=== PATIENT | female | born 1950 | race Two or more races ===

== ENCOUNTER 2017-04-22 18:03 | Inpatient (IN) | payer SELFPAY ==
[~2017-04-22] VITALS: Ht 170.2 cm; Wt 83.6 kg
--- NOTE | ~2017-04-22 | OR ---
PATIENT'S NAME: MAC [facility] AGE: 66 Y [address] ROOM: [place] [address] LOCATION: GPCU ADMIT DATE: 04/22/2017 OR/Procedure Report DISCHARGE DATE: FAMILY PHYSICIAN: PHYSICIAN, NO ATTENDING PHYSICIAN: JANA SHERWOOD SURGEON: Lindsey Ruff MD LUGGAGE ATTENDANT: DATE OF PROCEDURE: 04/22/2017 PREOPERATIVE DIAGNOSES: 1. Left distal ureter stone. 2. Pyelonephritis. POSTOPERATIVE DIAGNOSES: 1. Left distal ureter stone. 2. Pyelonephritis. PROCEDURE PERFORMED: Cystoscopy with left stent placement. ANESTHESIA: MAC. COMPLICATIONS: None. INDICATION FOR PROCEDURE: The patient is a 66-year-old female with a 6-mm left distal ureter stone with infection. DETAILS OF PROCEDURE: After informed consent was obtained, the patient was taken to the operating room. A MAC anesthetic was applied and she was placed in dorsal lithotomy position. The groin area was prepped and draped in a normal sterile fashion. Cystoscope was introduced into the urethra and bladder without difficulty. A guidewire was passed up into the renal pelvis. Next, a 6-St Lucian multi-length ureteral stent was passed over the guidewire up into the renal pelvis. Radiograph imaging showed good position of the stent. The patient did drain a large amount of purulent matter from the ureter after stent placement. This was sent to micro for culturing. Following this, the bladder was emptied and the procedure terminated. The patient tolerated the procedure well and was transferred to the recovery room in good condition. LINDSEY RUFF MD COOPER/modl PATIENT'S NAME: MAC [facility] AGE: 66 Y [address] ROOM: [place] [address] LOCATION: GPCU ADMIT DATE: 04/22/2017 OR/Procedure Report DISCHARGE DATE: FAMILY PHYSICIAN: CODY CATHERINE ATTENDING PHYSICIAN: JANA SHERWOOD /[id number] d: 04/23/174 t: 04/27/17 1022, OPERATIVE SUMMARY
--- NOTE | ~2017-04-22 | HP ---
PATIENT'S NAME: MAC [facility] AGE: 66 Y [address] ROOM: [place] [address] LOCATION: GPCU ADMIT DATE: 04/22/2017 History & Physical DISCHARGE DATE: FAMILY PHYSICIAN: PHYSICIAN, NO ATTENDING PHYSICIAN: JANA SHERWOOD DATE OF SERVICE: CHIEF COMPLAINT: Left flank and left lower quadrant abdominal pain and urinary frequency and urgency. HISTORY OF PRESENT ILLNESS: This is a 66-year-old Bhutanese-speaking female, who says that since early March 2017 the patient has been having some on and off left flank and left lower quadrant abdominal pain associated with urination. However, the symptom got worse, starting yesterday where the pain in the left lower quadrant and left flank was getting worse and worsened also with urination. She feels some chills and shivering 3 days ago, but she did not take any temperature at home. The patient denies any dysuria, but she does have urinary frequency and urgency. Because of all these problems, the patient came here for evaluation. The patient also complains that for the last 5 years she has been having this on and off, clear fluid leaking out from her anus. Sometimes, the clear fluid would come out from her urethra and anus at the same time when she urinates. The patient would like to know what is going on with her because she has to wear diapers all the time due to this problem. REVIEW OF SYSTEMS: As mentioned in history of present illness. All other systems were reviewed and were negative except those mentioned in the history of present illness. PAST MEDICAL HISTORY: Hypertension, on diet control. ALLERGIES: NONE. HOME MEDICATIONS: Currently has been reconciled. She only takes Tylenol p.r.n. at home. SOCIAL HISTORY: Denies any alcohol, illegal drug, or cigarette use. PATIENT'S NAME: MAC [facility] AGE: 66 Y [address] ROOM: [place] [address] LOCATION: GPCU ADMIT DATE: 04/22/2017 History & Physical DISCHARGE DATE: FAMILY PHYSICIAN: PHYSICIAN, NO ATTENDING PHYSICIAN: JANA SHERWOOD FAMILY HISTORY: Her father from old age from a cause that she could not remember. Mother has diabetes type 2 and asthma and is alive. PAST SURGICAL HISTORY: in the past. PHYSICAL EXAMINATION: VITAL SIGNS: At the time of my dictation, temperature 98, heart rate 90, respirations 16, blood pressure 127/69, and saturation 94% on room air. GENERAL APPEARANCE: Alert and oriented x3, in no acute distress. HEENT: Pupils equally round and reactive to light. Extraocular muscles intact. Nasal turbinates are normal bilaterally. Moist oral mucosa. NECK: No JVD. CARDIOVASCULAR: Regular rate and rhythm. No murmur. No rubs. No gallops. RESPIRATORY: Clear to auscultation. No rales. No rhonchi. No wheezing. No crackles. ABDOMEN: Obese, soft, and nontender at the moment, nondistended, bowel sounds are present. No mass. EXTREMITIES: No edema in the upper or lower extremities. GENITOURINARY: I performed the rectal exam in the presence of her daughter in the room. When I examined the anal area with inspection, I could appreciate a clear water coming out from the anus. SKIN: No ulcer. No rash. No cyanosis. NEUROLOGICAL: Grossly nonfocal. LABORATORY DATA: ABG showed pH of 7.43, pCO2 of 31, pO2 of 48, and bicarbonate 20.6. Lactic acid 2.7 and ammonia 16. Troponin less than 0.04. ProBNP 983. CPK 17. White blood cell 15.5, hemoglobin 10.3, hematocrit 31.6, MCV 90.8, and platelets 249. Glucose 106, BUN 29, creatinine 1.3, sodium 141, potassium 3.9, chloride 111, CO2 of 19, calcium 8.4, total protein 6.7, albumin 2.2, AST 10, ALT 16, alkaline phosphatase 110, total bilirubin 0.6, anion gap 14.9, globulin 4.5, and GFR 41. ESR more than 120. INR 1.2 and PTT 33. Urinalysis showed leukocytes 500, negative nitrite, many bacteria, 20 to 50 white blood cell, and 2 to 5 red blood cells. Amylase 20, lipase 73, CK-MB 0.6, free T4 1.6, TSH 0.98, and procalcitonin 3.84. IMAGING STUDIES: CT of the abdomen and pelvis without contrast on admission showed obstructing 7 mm left ureterovesical junction stone. Bhkndkto-qs-hbnzvq left hydronephrosis. Vbfx-ep-wfsajlug right hydronephrosis without stones or other clear explanation. This may be chronic. Hysterectomy. Chest x-ray on admission, unremarkable. PATIENT'S NAME: ARNOL WATTS [facility] AGE: 66 Y [address] ROOM: [id number] [place], [place] [address] LOCATION: GPCU ADMIT DATE: 04/22/2017 History & Physical DISCHARGE DATE: FAMILY PHYSICIAN: PHYSICIAN, NO ATTENDING PHYSICIAN: JANA SHERWOOD ASSESSMENT/PLAN: 1. Regarding her severe sepsis secondary to complicated urinary tract infection with pyelonephritis: The patient already underwent cystoscopy with left ureteral stent placement by Urology on admission. The patient is postop right now. The plan will continue IV fluids ordered by Urology and also pain control with IV morphine and IV fentanyl p.r.n. and also antibiotic coverage with IV Zosyn. Follow up with blood cultures and urine culture. Further plan will depend on clinical course. 2. Regarding her hypertension diet controlled: Currently under good control. No medication required for now. 3. Regarding her leakage of clear color fluid from rectum: The fluid is clear. It is not stool and the patient states that sometimes this happened simultaneously from her urethra when she urinates where it would also leak from her rectum. This has been going on for the last 5 years on and off. The patient would like to have this investigated during this hospitalization. I will defer to the morning team to decide if GI should be consulted since CT abd/pelv report did not report a possible explanation. Further plan will depend on clinical course. 4. Regarding her deep vein thrombosis prophylaxis: She will be on heparin subcu 3 times a day. 5. Regarding her acute kidney injury: This is secondary to the postobstructive cause from the kidney stone. Continue IV fluid hydration and check renal panel again in the morning. 6. She is a full code. Time spent in care on the day of admission 35 minutes, where 15 minutes was spent on chart review and remainder of the time was spent on interview, physical examination, and also went over the plan of care in detail with the patient and the patient's daughter at the bedside. I also went over the plan of care with the nurse. I answered all the questions and concerns of the patient and the patient's daughter to their satisfaction. Further plan will depend on clinical course. MD RACHEL ASH/min PATIENT'S NAME: ARNOL WATTS [facility] AGE: 66 Y [address] ROOM: [place] [address] LOCATION: [facility] ADMIT DATE: 04/22/2017 History & Physical DISCHARGE DATE: FAMILY PHYSICIAN: CODY CATHERINE ATTENDING PHYSICIAN: JANA SHERWOOD /[id number] D: [id number] T: [id number] HISTORY & PHYSICAL
--- NOTE | ~2017-04-22 | ER ---
PATIENT'S NAME: MAC [facility] AGE: 66 Y [address] ROOM: [id number] [place] [id number] LOCATION: GPCU ADMIT DATE: 04/22/2017 ER/Outpatient Report DISCHARGE DATE: FAMILY PHYSICIAN: PHYSICIAN, NO ATTENDING PHYSICIAN: JANA SHERWOOD Admission date and time are documented in the medical record. I saw the patient at 1820 hours. CHIEF COMPLAINT: Fever, tachycardia, loss of appetite, generalized weakness, chills, headache, nausea, and left-sided abdominal pain. HISTORY OF PRESENT ILLNESS: This patient is a 66-year-old female who has not felt well since March 26 of this year. She was initially seen in [place] and thought to have some type of liver problem and colon problem. She ended up having diarrhea and put on Flagyl on the 05 of April. She is on Flagyl for about 10 days. Over the past 2 days, she has had fever with chills, possible rigors, and nausea without vomiting. Generalized weakness, loss of appetite, poor fluid, and solid intake. Left-sided abdominal pain with no radiation. No chest pain or shortness of breath. Denies any urinary symptomatology. She has a headache generalized. No eyes, ears, nose, throat, neck, or spine pain. No fall or trauma. No lightheadedness, dizziness, syncope, or near syncope. No joint or muscle swelling, redness, or pain. No skin eruptions or rash. No history of neuro changes, psych issues, or endocrine problems. HOME MEDICATIONS: See attached medication list. ALLERGIES: NONE. SOCIAL HISTORY: Nonsmoker, nondrinker. SIGNIFICANT PAST MEDICAL HISTORY: Elevated liver enzymes, colon problems, and arthritis. OPERATIONS: None. REVIEW OF SYSTEMS: All systems reviewed by me are negative with the exception of those discussed in the history of present illness. PATIENT'S NAME: MAC [facility] AGE: 66 Y [address] ROOM: [id number] [place], [place] [address] LOCATION: GPCU ADMIT DATE: 04/22/2017 ER/Outpatient Report DISCHARGE DATE: FAMILY PHYSICIAN: PHYSICIAN, NO ATTENDING PHYSICIAN: JANA SHERWOOD PHYSICAL EXAMINATION: VITAL SIGNS: Temperature 101.4, tympanic, pulse 141, respirations 16, O2 sat on room air was 96%, blood pressure was 122/76. HEAD: Normocephalic. No abrasion, contusion, laceration, or swelling of the scalp or face. EYES: Extraocular muscles are intact. PERRL. Sclerae and conjunctivae clear, nonicteric. EARS: Clear TMs bilaterally. NOSE: Clear. THROAT: Clear. Mucous membranes dry. NECK: No nuchal rigidity. No thyromegaly or cervical adenopathy. No tenderness. SPINE: Negative. No tenderness. No deformity. LUNGS: Clear. Good air flow. No rales, rhonchi, or wheezes. HEART: Regular. Pulses are palpable. ABDOMEN: Soft. No real tenderness to palpation. No distention. No true guarding or rigidity. No rebound tenderness. Active bowel tones. No organomegaly or abnormal mass palpable. No CVA tenderness. EXTREMITIES: No peripheral edema, cyanosis, or deformity. NEUROVASCULAR: Intact. SKIN: Clear. No skin eruptions or rash. IMAGING DATA: Chest x-ray showed no acute infiltrate or changes. We will review x-ray with the radiologist. LABORATORY DATA: White count was elevated at 15,500, 56 segs, 32 bands, 5 lymphs, 6 monos, 1 eo, hemoglobin is 10.3 with hematocrit 31.6, and platelet count is 249,000. Sed rate was elevated at 120, PTT was 33, pro-time is 12.7, INR 1.21. Venous pH was 7.43, lactate was elevated 2.7, procalcitonin was elevated 3.84. CMS was normal except for an elevated chloride of 111, low CO2 content of 19, elevated glucose 106, low calcium of 8.4, elevated BUN of 29, elevated creatinine 1.3, and low GFR of 41. Amylase and lipase were normal. CPK was 17. Lkswv-dx-fzge cardiac enzymes were normal. CRP was elevated at greater than 37.5, free T4 was 1.6, TSH was 0.981, pro-BNP was 983, serum ammonia level was 16. Urinalysis showed 20-50 whites, 2-5 reds, 5-10 epithelial cells, many bacteria, 1+ mucus, few white blood cell clumps, negative nitrates, culture pending. Two blood cultures drawn, results pending. CT scan of the abdomen and pelvis without contrast showed no free air or free fluid. The patient did have bilateral hydronephrosis. Left greater than right. Left was of severe with obstruction caused by a 6-7 mm distal ureteral stone at the UVJ. CT scan was read by Radiology, see dictated transcribed report. PATIENT'S NAME: ARNOL WATTS [facility] AGE: 66 Y [address] ROOM: [place] [address] LOCATION: GPCU ADMIT DATE: 04/22/2017 ER/Outpatient Report DISCHARGE DATE: FAMILY PHYSICIAN: CODY CATHERINE ATTENDING PHYSICIAN: JANA SHERWOOD EMERGENCY DEPARTMENT COURSE: I did start the patient on IV normal saline and fluids. I gave her 3 L then 150 mL an hour. Also, started her on Zosyn 4.5 g IV here in the emergency department. I also gave her oral ibuprofen 800 mg for fever. IMPRESSION: 1. Sepsis, etiology most likely urinary tract. She most likely has pyelonephritis. She does not have a 6-7 mm obstructing left ureteral stone at the ureterovesical junction with ktxcpxtb-ct-yeppdt hydronephrosis on the left collecting system. She also has hydronephrosis on the right collecting system without any evidence of stone obstruction. She does have an elevated BUN of 29, elevated creatinine of 1.3, and low GFR of 41. She had accompanied left-sided abdominal pain. Procalcitonin elevated at 3.84, lactate was elevated 2.7, white count was elevated at 15,500 with bandemia of 32% bands. Urine culture and blood cultures are obtained and results are pending. She is tachycardic, tachypneic, and high temperature of 101.4. She meets all sepsis criteria. 2. Obstructing distal left ureteral stone measuring 6-7 mm at the ureterovesical junction. She has accompanied moderate severe hydronephrosis and collecting system obstruction. The patient is need of cystoscopy and stone extraction. PLAN: Again, the patient was started on IV normal saline, fluids, sepsis x0, it is 2030 hours. Discussed the patient with Dr. Sherwood, hospitalist who will admit the patient to PCU telemetry. I did also speak with Dr. Ruff urologist who is going to take the patient back to operative suite to perform a cystoscopy, stone extraction, and stent placement. Discussion ensued with the patient concerning my findings and recommendations, she understands. Accumulated critical care time was 40 minutes. MD ALEIDA MARVIN/min /[id number] d: 04/23/17 0244 t: 04/23/17 1808, OUTPATIENT REPORT
--- NOTE | ~2017-04-22 | DS ---
PATIENT'S NAME: MAC [facility] AGE: 66 Y [address] ROOM: [place] [address] LOCATION: GPCU ADMIT DATE: 04/22/2017 Discharge Summary DISCHARGE DATE: 04/28/2017 FAMILY PHYSICIAN: CODY CATHERINE ATTENDING PHYSICIAN: Norman Link PRIMARY DIAGNOSES: 1. Severe sepsis. 2. Acute pyelonephritis. 3. Obstructive uropathy, status post cystoscopy with left ureteral stent. 4. Acute kidney injury. 5. Colovesicular fistula. 6. Iron-deficiency anemia. 7. Essential hypertension. 8. Moderate protein-calorie malnutrition. OPERATIONS/PROCEDURES: CT scan of the abdomen and pelvis was performed 04/22/2017 demonstrating an obstructing 7-mm left UVJ stone and left hydronephrosis. Postprocedural CT scan demonstrated the presence of a left ureteral stent and colovesical fistula was demonstrated. HISTORY OF PRESENTING ILLNESS/REASON FOR ADMISSION: Please refer to the H and P dictated 04/22/2017. HOSPITAL COURSE: The patient is admitted to the hospital as noted above with a presumptive diagnosis of severe sepsis and urinary tract infection. She received aggressive supportive cares and broad-spectrum antibiotic therapy. She was placed on IV Zosyn. Urine cultures demonstrated Citrobacter freundii and Proteus mirabilis. Proteus was also demonstrated in 1 of her blood cultures. Her clinical condition improved with supportive cares and antibiotic therapy as above. Urology was consulted. She was taken for urgent cystoscopy. Left ureteral stent was placed. Her renal function improved with a presenting creatinine of 1.3, resolving to 1.1, by day #3 of her hospital stay. She defervesced and remained hemodynamically stable over the course of her hospital stay. She did demonstrate some urinary leakage. Urology recommended outpatient followup. It was also suggested that she have General Surgery evaluation. General Surgery had been contacted regarding the case and requested for outpatient followup. By the end of the 6th day of her hospital stay, it was felt she would be stable enough for discharge to home on oral antibiotic therapy and close clinical followup with Urology and General Surgery. She was also going to PATIENT'S NAME: MAC [facility] AGE: 66 Y [address] ROOM: [place] [address] LOCATION: GPCU ADMIT DATE: 04/22/2017 Discharge Summary DISCHARGE DATE: 04/28/2017 FAMILY PHYSICIAN: PHYSICIAN, NO ATTENDING PHYSICIAN: Norman Link establish primary care with Dr. Balderas here in [place]. DISCHARGE INSTRUCTIONS: 1. Diet: Regular as tolerated. 2. Activity: As tolerated. MEDICATIONS: 1. Cephalexin 500 mg p.o. q.i.d. x10 more days. 2. Iron 325 mg p.o. daily. 3. Florastor 250 mg p.o. b.i.d. 4. Acetaminophen 500 mg p.o. q.4 h. p.r.n. pain or fever. FOLLOW UP: She will follow up with Dr. Balderas, primary care in 7-10 days. She will follow up with Dr. Sotomayor in 1 week. She will follow up with Urology on 05/11/2017 for cystoscopy. CONDITION ON DISCHARGE: Fair. Total time spent on discharge process was 45 minutes. MD MARIA BAEZ/min /[id number] d: 04/29/17 0320 t: 05/02/17 0833, DISCHARGE SUMMARY
--- NOTE | ~2017-04-22 | CON ---
PATIENT'S NAME: MAC [facility] AGE: 66 Y [address] ROOM: [place] [address] LOCATION: GPCU ADMIT DATE: 04/22/2017 Consultation DISCHARGE DATE: FAMILY PHYSICIAN: PHYSICIAN, NO ATTENDING PHYSICIAN: JANA SHERWOOD DATE OF CONSULTATION: 04/22/2017 REFERRING PHYSICIAN: Evelin Ruff MD HISTORY OF PRESENT ILLNESS: The patient is a 66-year-old Trinid[place] female with a 2-day history of left flank abdominal pain with fever and chills. The patient had similar episodes early last month and was treated for possible diverticulitis with Flagyl. Again, the patient complains of abdominal pain and fever. Abdominopelvic CT scan revealed a 6 mm distal left ureter stone with hydronephrosis. She was also noted to have moderate right-sided hydronephrosis without stone present. I discussed cystoscopy with left stent placement with followup ureteroscopy in the future after infection is treated. PAST MEDICAL HISTORY: Significant for elevated liver enzymes and arthritis. MEDICATIONS: Include: 1. Tylenol. 2. Flagyl. ALLERGIES: NONE. SOCIAL HISTORY: The patient is a nonsmoker. No history of alcohol use. REVIEW OF SYSTEMS: Significant for abdominal discomfort, dysuria, and urinary frequency. PHYSICAL EXAMINATION: VITAL SIGNS: Temperature is 101.4, blood pressure is 122/76, pulse is 131. EAR, NOSE, MOUTH, AND THROAT: No nasal or ear drainage noted. LUNGS: Clear bilaterally. CARDIAC: Regular rhythm with tachycardia. ABDOMEN: Somewhat tender to palpation. Left flank tenderness and normoactive bowel sounds. NEURO: Grossly intact. SKIN: Within normal limits. PATIENT'S NAME: MAC [facility] AGE: 66 Y [address] ROOM: [place] [address] LOCATION: GPCU ADMIT DATE: 04/22/2017 Consultation DISCHARGE DATE: FAMILY PHYSICIAN: PHYSICIAN, NO ATTENDING PHYSICIAN: JANA SHERWOOD MUSCULOSKELETAL: Full range of motion. IMPRESSION: A 6 mm distal left ureter stone with hydronephrosis and pyelonephritis. PLAN: We will take the patient to the operating room for cystoscopy and left stent placement. MD COOPER MARTIN/min /[id number] d: 04/23/17 0231 t: 04/27/17 1020, CONSULTATION REPORT
[2017-04-22 19:23] LABS: BICARBONATE 20.6 mmol/L (18.0-23.0); LACTATE 2.7 mEq/L (0.50-1.60); PCO2 31 mmHg (35-45)
[2017-04-22 19:24] LABS: PO2 48 mmHg (80-90)
[2017-04-22 19:25] LABS: HEMATOCRIT 31.6 % (33.0-46.0); HEMOGLOBIN 10.3 g/dL (10.0-15.0); MCH 29.6 pg (27.0-34.0); MCHC 32.6 gm/dL (32.0-36.5); MCV 90.8 fl (83.0-98.0); MPV 10.1 fl (9.4-12.4); PLATELET COUNT 249 K/uL (150-450); RBC 3.48 M/uL (3.50-5.50); RDW-CV 15.9 % (11.9-14.6); WBC 15.5 K/uL (4.0-11.0)
[2017-04-22 19:35] LABS: INR - (THERAPEUTIC) 1.21 (0.92-1.07); PROTIME 12.7 SECONDS (9.8-11.4); PTT 33 SECONDS (25-32)
[2017-04-22 19:48] LABS: ALBUMIN 2.2 gm/dL (3.5-5.0); ALK PHOS 110 IU/L (33-138); ALT 16 IU/L (12-78); ANION GAP 14.9 (10.0-19.0); AST 10 IU/L (10-40); BLOOD UREA NITROGEN 29 mg/dL (6-24); CALCIUM 8.4 mg/dL (8.5-10.5); CHLORIDE 111 mMol/L (96-110); CO2 19 mMol/L (22-32); CPK 17 IU/L (21-215); CREATININE 1.3 mg/dL (0.5-1.1); ESTIMATED GFR (MDRD EQUATION) 41; POTASSIUM 3.9 mMol/L (3.7-5.1); SODIUM 141 mMol/L (135-145); TOTAL BILIRUBIN 0.6 mg/dL (0.0-1.5); TOTAL PROTEIN 6.7 g/dL (6.0-8.4)
[2017-04-22 20:07] LABS: ABSOLUTE NEUTROPHIL CT (ANC) 13.6 K/uL (1.8-7.8); BANDED NEUTROPHILS % 32 %; LYMPHOCYTE # 0.8 K/uL (0.8-4.0); LYMPHOCYTE % 5 %; MONOCYTE # 0.9 K/uL (0.0-1.0); SEGMENTED NEUTROPHIL # 8.7 K/uL (1.8-7.8); SEGMENTED NEUTROPHIL % 56 %
[2017-04-22 21:27] LABS: BILIRUBIN URINE NEGATIVE (NEGATIVE); BLOOD URINE 50 /UL (NEGATIVE); COLOR URINE YELLOW (YELLOW); GLUCOSE URINE NEGATIVE (NEGATIVE); KETONE URINE NEGATIVE (NEGATIVE); LEUKOCYTES URINE 500 /UL (NEGATIVE); NITRITE URINE NEGATIVE (NEGATIVE); PROTEIN URINE 30 mg/dL (NEGATIVE); SPEC GRAVITY URINE 1.005 (1.003-1.035); TURBIDITY URINE 1+ (CLEAR); UROBILINOGEN URINE NORMAL (NORMAL)
[2017-04-22 21:36] LABS: WBC URINE 20-50 #/HPF (NEGATIVE)
[2017-04-22 21:38] LABS: BACTERIA URINE MANY (NEGATIVE)
[2017-04-22 21:39] LABS: MUCUS URINE 1+ (NEGATIVE); WBC CLUMPS URINE FEW (NEGATIVE)
[2017-04-23] MEDS ORDERED: FLAGYL500 MG PO (00:41)
[2017-04-23] MEDS ORDERED: TYLENOL EXTRA500 MG PO (00:41)
--- NOTE | 2017-04-23 01:18 | NUR ---
PATIENT ADMITTED FOR UROSEPSIS WITH L) URETER STONE. STONE REMOVED AND STENT PLACED IN OR. ROMANSH SPEAKING ONLY. FAMILY AT BEDSIDE. FAMILY STATES SHE SAW A DOCTOR IN [place] IN JANUARY FOR "GI PROPLEMS". REPORTS FEVERS AND ABDOMINAL PAIN OVER THE LAST FEW DAYS BEFORE COMING INTO ER TODAY. CALL LIGHT EDUCATION TO PATIENT AND FAMILY.
[2017-04-23 03:40] LABS: HEMATOCRIT 30.2 % (33.0-46.0); HEMOGLOBIN 9.7 g/dL (10.0-15.0); MCH 29.8 pg (27.0-34.0); MCHC 32.1 gm/dL (32.0-36.5); MCV 92.6 fl (83.0-98.0); MPV 10.2 fl (9.4-12.4); PLATELET COUNT 216 K/uL (150-450); RBC 3.26 M/uL (3.50-5.50); RDW-CV 15.9 % (11.9-14.6); WBC 13.5 K/uL (4.0-11.0)
[2017-04-23 03:52] LABS: ANION GAP 11.7 (10.0-19.0); CALCIUM 7.9 mg/dL (8.5-10.5); CREATININE 1.2 mg/dL (0.5-1.1); POTASSIUM 3.7 mMol/L (3.7-5.1)
[2017-04-23 04:19] LABS: ABSOLUTE NEUTROPHIL CT (ANC) 11.9 K/uL (1.8-7.8); BANDED NEUTROPHIL # 4.1 K/uL (0.0-0.1); BANDED NEUTROPHILS % 30 %; LYMPHOCYTE # 0.7 K/uL (0.8-4.0); LYMPHOCYTE % 5 %; MONOCYTE # 1.1 K/uL (0.0-1.0); SEGMENTED NEUTROPHIL # 7.8 K/uL (1.8-7.8); SEGMENTED NEUTROPHIL % 58 %
--- NOTE | 2017-04-23 05:02 | NUR ---
A/O. SAMI SPEAKING ONLY. FAMILY AT BEDSIDE. HR 90-100s. SBP 90-120s. ROOM AIR. AFEBRILE. DRIBBLING INCONTENICE. WEARING BRIEF. D5 1/2NS AT 125ML/HR. 1A UP TO BATHROOM. NO BM. DENIES PAIN.
--- NOTE | 2017-04-23 14:33 | NUR ---
Significant Event: pt up to bathroom 1 asst. Pt daughter assists. Pt to go for cystogram, lerner inserted. IVF infusing. New IV RFA for antibiotic. [place] this am for pain all over with relief. Need monitor uop. Loose bm. Follow up:
--- NOTE | 2017-04-24 04:19 | NUR ---
Significant Event: A/O x3. 99.1-101.0 temps earlier in shift. Last temp 97.7 @ 0250. HR 80-110s. SBP 110-140s. IV NS @ 125/hr continuous. Rubio w/ 1833 uop. Up 1 assist with walker. Turkmen speaking only. Family at bedside. Follow up: Continue to monitor per plan of care.
--- NOTE | 2017-04-24 15:13 | NUR ---
Significant Event: A/O. VSS on RA. Denies pain. Up with 1 assist in room, up in chair for only a short time today. T high 99.6. Family at bedside and helps translate. Rubio to DD. Midline to L) upper arm. Follow up: cont plan of care
[2017-04-25 04:12] LABS: BASOPHIL % 0.4 %; EOSINOPHIL % 0.6 %; HEMATOCRIT 27.4 % (33.0-46.0); HEMOGLOBIN 8.7 g/dL (10.0-15.0); IMMATURE GRANULOCYTE # 0.1 K/uL (0.0-0.3); IMMATURE GRANULOCYTE % 1.2 %; LYMPHOCYTE # 0.6 K/uL (0.8-4.0); LYMPHOCYTE % 9.3 %; MCH 28.7 pg (27.0-34.0); MCHC 31.8 gm/dL (32.0-36.5); MCV 90.4 fl (83.0-98.0); MONOCYTE # 0.5 K/uL (0.0-1.0); MONOCYTE % 6.5 %; MPV 10.1 fl (9.4-12.4); NEUTROPHIL # (ANC) 5.7 K/uL (1.8-7.8); NRBC % 0 /100WBC (0-0.00); PLATELET COUNT 194 K/uL (150-450); RBC 3.03 M/uL (3.50-5.50); RDW-CV 16.1 % (11.9-14.6); WBC 6.9 K/uL (4.0-11.0)
[2017-04-25 04:29] LABS: ANION GAP 12.7 (10.0-19.0); CALCIUM 7.9 mg/dL (8.5-10.5); CREATININE 1.1 mg/dL (0.5-1.1); POTASSIUM 3.7 mMol/L (3.7-5.1); TOTAL PROTEIN 5.8 g/dL (6.0-8.4)
[2017-04-25 04:30] LABS: ALBUMIN 1.6 gm/dL (3.5-5.0); TOTAL BILIRUBIN 0.4 mg/dL (0.0-1.5)
--- NOTE | 2017-04-25 05:40 | NUR ---
Significant Event: A/O x3. Afebrile. Denied pain. VSS on RA. Ramiro w/ 1850 uop. NS @ 100/hr. IV antibiotics given. Tunisian speaking only. Follow up: continue to monitor per plan of care.
--- NOTE | 2017-04-25 16:45 | NUR ---
Significant Event: A/O X3. UP WITH 1 ASSIST. FAMILY HELPS WITH CARES. MIDLINE TO LEFT UPPER ARM, INFUSING INTERMITTENT ZOSYN. CAREY CATHETER PATENT WITH 1825 ML UOP. BM X2. PIV SL'D TO RIGHT FA. MAX TEMP 100.4, 1 GM TYLENOL GIVEN X1. Follow up:
--- NOTE | 2017-04-26 04:25 | NUR ---
Significant Event: PATIENT IS A/O X3 TONGAN SPEAKING ONLY. FAMILY AT BEDSIDE THROUHGOUT THE NIGHT TO TRANSLATE. VSS. HR 80-90'S. SBP 130-160'S. AFEBRILE. 02 SAT IN MID 90'S ON RA. NO C/O PAIN. LUNGS CLEAR/DIM THROUGHOUT. UP WITH 1A TO RESTROOM. FAMILY ASSIST WITH TRANSFERS. BOWELS ACTIVE. CAREY INTACT WITH 1900 ML UOP. SOME WHITE SEDIMENT IN DRAINAGE BAG. REDNESS TO BOTTOM BUT BLANCHEABLE. RIGHT FORARM IV SL. LEFT UPPER ARM MIDLINE WITH INTERMITTENT IV ZOSYN. FAMILY STATES PATIENT HAD 4 LOOSE STOOLS. NEED TO GET ORDER FOR CDIFF SAMPLE BUT SUPPLIES IN ROOM TO COLLECT SAMPLE. TOLD FAMILY TO CALL WHEN PATIENT HAS HAD ANOTHER BM. Follow up: PATIENT HAVING LOOSE STOOLS. PROBIOTIC NEEDS ORDERED.
--- NOTE | 2017-04-26 16:59 | NUR ---
Significant Event: Alert and oriented X3, croatian speaking only. Family at bedside to help with cares and translation. Up with 1 assist. Midline to upper left arm, flushes well, good blood return. Rubio catheter intact with 800 ml out this shift. 1 bowel movement this shift, family states it is loose and mushy. Peripheral IV to right forearm, saline locked. No complaints of pain. Pleasant and coooperative with cares. Follow up:
[2017-04-27 03:44] LABS: BASOPHIL # 0.1 K/uL (0.0-0.2); BASOPHIL % 0.8 %; EOSINOPHIL # 0.1 K/uL (0.0-0.5); EOSINOPHIL % 1.4 %; HEMATOCRIT 28.5 % (33.0-46.0); HEMOGLOBIN 9.4 g/dL (10.0-15.0); IMMATURE GRANULOCYTE # 0.3 K/uL (0.0-0.3); IMMATURE GRANULOCYTE % 3.8 %; LYMPHOCYTE % 15.6 %; MCH 29.1 pg (27.0-34.0); MCV 88.2 fl (83.0-98.0); MONOCYTE # 0.5 K/uL (0.0-1.0); MONOCYTE % 8.1 %; MPV 9.8 fl (9.4-12.4); NEUTROPHIL # (ANC) 4.7 K/uL (1.8-7.8); NEUTROPHIL % 70.3 %; NRBC % 0 /100WBC (0-0.00); PLATELET COUNT 216 K/uL (150-450); RBC 3.23 M/uL (3.50-5.50); RDW-CV 15.7 % (11.9-14.6); WBC 6.7 K/uL (4.0-11.0)
--- NOTE | 2017-04-27 04:36 | NUR ---
Significant Event: PATIENT IS A/O X3 SYRIAN SPEAKING ONLY. VSS. HR 80-90'S. SBP 130-170'S. AFEBRILE. 02 SATS IN MID 90'S ON RA. NO C/O PAIN. LUNGS CLEAR/DIM THROUGHOUT. UP WITH 1A WITH FAMILY ASSIST. BOWELS ACTIVE. BM X2. CAREY INTACT WITH 2500 ML UOP. LEFT UPPER ARM MIDLINE WITH INTERMITTENT ZOSYN. RIGHT FOREARM IV SL. Follow up: PATIENT NEEDS PROBIOTIC. CONTINUE TO MONITOR PER PLAN OF CARE.
--- NOTE | 2017-04-27 11:40 | NUR ---
5230 Call from Lashay' daughter, Crista, , stating that she had some questions about her moms' Medicaid/Medicare application and was wanting more information on this. She didn't speak very good Swiss so she asked me to find someone that spoke Monegasque to help her if I could. I let her know that [facility] in the [facility] might be able to help her out and I would make a referral to them and have them follow up with her. Crista was fine with this. I plan on talking to Velma about this referral when I go down to the office later today. I also will provide her with a sticky note re:Taqueria' contact information as well so Velma has the best number to reach her at. Crista also shares with me that Amie and herself have a meeting with the Social Security Office on May 19, 2017, but isn't clear on what they are going to talk with them about. I once again explained to her that Velma could better answer these questions and I would have her get ahold of her. Crista thanked me for this. 1115 I later rounded to look at Lashay' chart. It appears that rounded today and is planning on switching Amie from IV Abxs to oral Abxs and having her return back home in the next 1-2 days. I have made contact with Sonia Anderson, to come visit with Amie and myself later to discuss this with Amie and any family that might be present. CM to continue to follow and assist. Plan home
--- NOTE | 2017-04-27 13:18 | NUR ---
PT MOVED TO NO RISK INTAKE CONSISTENTLY 75-100%. WILL DISCONTINUE ENSURE BID BMI IN OVERWEIGHT RANGE. WILL ASSIST NEEDED.
--- NOTE | 2017-04-27 19:18 | NUR ---
Significant Event:Patient was started on Florastor and Keflex today. Has been dangling side of the bed and up with family assist. No c/o pain. Has lerner catheter, draining large amount of urine. Appetitie good. Follow up:Home tomorrow, fabricio lerner
--- NOTE | 2017-04-28 04:38 | NUR ---
Significant Event: NICARAGUAN SPEAKING ONLY, FAMILY VERY HELPFUL WITH CARES. TEMP HAS BEEN 99.0 TO 99.2. FIRST SBP 170 HAS DROPPED DOWN TO 130'S BY 3RD ASSESSMENT. HR TACHY WHEN AMBULATING IN LOW 100'S. ALL OTHER VSS ON RA. HAD 2100 ML UOP VIA CAREY. CAREY D/C'D AT 0415. SHE HAS NOT COMPLAINED OF PAIN OR ANY OTHER COMPLICATIONS. FAMILY AT BEDSIDE ENTIRE EVENING. Follow up:
[2017-04-28 05:06] LABS: HEMOGLOBIN 10.3 g/dL (10.0-15.0); MCH 28.5 pg (27.0-34.0); MCHC 32.2 gm/dL (32.0-36.5); MCV 88.6 fl (83.0-98.0); MPV 9.7 fl (9.4-12.4); RBC 3.61 M/uL (3.50-5.50); RDW-CV 15.8 % (11.9-14.6); WBC 8.2 K/uL (4.0-11.0)
[2017-04-28 05:16] LABS: PLATELET COUNT 268 K/uL (150-450)
[2017-04-28 05:26] LABS: ANION GAP 11.4 (10.0-19.0); BLOOD UREA NITROGEN 15 mg/dL (6-24); CALCIUM 8.6 mg/dL (8.5-10.5); CHLORIDE 106 mMol/L (96-110); CO2 24 mMol/L (22-32); CREATININE 0.9 mg/dL (0.5-1.1); PHOSPHORUS 2.8 mg/dL (2.5-4.9); POTASSIUM 3.4 mMol/L (3.7-5.1); SODIUM 138 mMol/L (135-145)
[2017-04-28 05:28] LABS: ESTIMATED GFR (MDRD EQUATION) > 60
[2017-04-28 05:56] LABS: ABSOLUTE NEUTROPHIL CT (ANC) 6.7 K/uL (1.8-7.8); LYMPHOCYTE # 0.8 K/uL (0.8-4.0); LYMPHOCYTE % 10 %; MONOCYTE # 0.4 K/uL (0.0-1.0); SEGMENTED NEUTROPHIL # 6.7 K/uL (1.8-7.8); SEGMENTED NEUTROPHIL % 82 %
[2017-04-28] MEDS ORDERED: KEFLEX500 MG PO (10:06)
[2017-04-28] MEDS ORDERED: FEOSOL325 MG PO (10:08)
[2017-04-28] MEDS ORDERED: FLORASTOR250 MG PO (10:09)
--- NOTE | 2017-04-28 12:12 | NUR ---
D:Patient has been voiding. She is incontinent of urine. Daughter reports that this normal. Daughter assists patient with going to bathroom. IV's dc'd and patient off monitor. Is ready to go home, daughter is ready to take her home. Patient recieved 1100 dose of Keflex and discharge sheet updated to reflect that, also, patient recieved 20 mEq KCl per orders. Patient has personal belongings packed. No c/o pain. Discharged to daughters home. Released at 1150, per wheelchair from [facility].
[2017-05-11] MEDS ORDERED: COZAAR25 MG PO (07:35)
[2017-05-13] MEDS ORDERED: FERROUS SULFAT325 MG PO (16:23)
== END 2017-04-28 11:50 | disposition disaster alternative care site (69) | DRG 872 ==
LOC: GMED 18:03 → GPCU 22:19
PROVIDERS: Emergency Medicine; Family Medicine; Internal Medicine; ADMIT Internal Medicine
PROC: 0T778DZ Dilation of Left Ureter with Intraluminal Device, Via Natural or Artificial Opening Endoscopic (ICD-10-PCS; principal; 2017-04-22)
DX: A41.9 Sepsis, unspecified organism (principal); N17.9 Acute kidney failure, unspecified; E44.0 Moderate protein-calorie malnutrition; N13.6 Pyonephrosis; N32.1 Vesicointestinal fistula; I10 Essential (primary) hypertension; R65.20 Severe sepsis without septic shock; D64.9 Anemia, unspecified; D50.9 Iron deficiency anemia, unspecified; B96.4 Proteus (mirabilis) (morganii) as the cause of diseases classified elsewhere; B96.89 Other specified bacterial agents as the cause of diseases classified elsewhere; Z90.710 Acquired absence of both cervix and uterus
CPT/HCPCS: C1751; C1769; J1644; J2001; J2543; J7030; J7050; Q9958

== ENCOUNTER → 2017-05-11 | Day surgery (SDC) | payer SELFPAY ==
[~2017-05-11] VITALS: Ht 167.6 cm; Wt 77.5 kg
[~2017-05-11] MED LIST: COLACE100 MG PO; COZAAR25 MG PO; FEOSOL325 MG PO; FERROUS SULFAT325 MG PO; FLAGYL500 MG PO; FLORASTOR250 MG PO; KEFLEX500 MG PO; NORCO 5-325 TA1 EACH PO; TYLENOL EXTRA500 MG PO
--- NOTE | ~2017-05-11 | OR ---
PATIENT'S NAME: [facility] AGE: 66 Y [address] ROOM: [place] [address] [place] [facility] [place]: 05/11/2017 OR/Procedure Report DISCHARGE DATE: FAMILY PHYSICIAN: Alfred Balderas MD ATTENDING PHYSICIAN: Lindsey Wills SURGEON: Lindsey Wills MD BALCONY WORKER: DATE OF PROCEDURE: 05/11/2017 PREOPERATIVE DIAGNOSIS: Distal left ureter stone. POSTOPERATIVE DIAGNOSIS: Distal left ureter stone. PROCEDURE PERFORMED: Cystoscopy, left stent removal, left ureteroscopy with stone extraction. ANESTHESIA: MAC. COMPLICATIONS: None. INDICATION FOR PROCEDURE: The patient is a 66-year-old Uzbek female, who had a distal left ureter stone with obstruction associated with urinary tract infection. The patient had a left stent placed urgently. She now presents for stent removal and stone extraction. DETAILS OF PROCEDURE: After informed consent was obtained, the patient was taken to the operating room. A MAC anesthetic was applied. She was placed in dorsal lithotomy position. The groin area was prepped and draped in normal sterile fashion. Cystoscope was then introduced into the urethra and bladder without difficulty. Her stent was identified, engaged with alligator forceps and partially removed. A guidewire was then passed through the stent up into the renal pelvis. The stent was then completely removed. Ureteroscope was then introduced into the distal ureter where the patient known to have a large amount of debris and probable proteinous matter. Attempts to grab this with a stone basket for the most part were unsuccessful. Once engaged, the material would just break apart. I was able to remove a few small pieces which was sent for analysis. The remainder of it was dislodged from the ureteral wall to allow it to pass freely. Following this, the guidewire was removed and the bladder emptied. The patient tolerated the procedure well and transferred to recovery room in good condition. LINDSEY WILLS MD PATIENT'S NAME: [facility] AGE: 66 Y [address] ROOM: [place] [address] [place]: [facility] [place] DATE: 05/11/2017 OR/Procedure Report DISCHARGE DATE: FAMILY PHYSICIAN: Alfred Balderas MD ATTENDING PHYSICIAN: Lindsey Wills/min /[id number] d: 05/11/17 1124 t: 05/19/17 0902, OPERATIVE SUMMARY
[2017-05-11 07:45] LABS: BASOPHIL # 0.1 K/uL (0.0-0.2); BASOPHIL % 1.5 %; EOSINOPHIL # 0.2 K/uL (0.0-0.5); HEMATOCRIT 37.1 % (33.0-46.0); HEMOGLOBIN 11.7 g/dL (10.0-15.0); IMMATURE GRANULOCYTE # 0.1 K/uL (0.0-0.3); IMMATURE GRANULOCYTE % 1.5 %; LYMPHOCYTE # 1.9 K/uL (0.8-4.0); LYMPHOCYTE % 21.8 %; MCHC 31.5 gm/dL (32.0-36.5); MCV 91.8 fl (83.0-98.0); MONOCYTE # 0.5 K/uL (0.0-1.0); MONOCYTE % 5.3 %; MPV 9.4 fl (9.4-12.4); NEUTROPHIL % 67.9 %; NRBC % 0 /100WBC (0-0.00); PLATELET COUNT 411 K/uL (150-450); RBC 4.04 M/uL (3.50-5.50); RDW-CV 16.3 % (11.9-14.6); WBC 8.9 K/uL (4.0-11.0)
[2017-05-11 07:59] LABS: ANION GAP 9.6 (10.0-19.0); CALCIUM 9.2 mg/dL (8.5-10.5); CREATININE 0.9 mg/dL (0.5-1.1); POTASSIUM 3.6 mMol/L (3.7-5.1)
== END | disposition disaster alternative care site (69) ==
LOC: GSDC 07:00
PROVIDERS: Urology
PROC: 0TC78ZZ Extirpation of Matter from Left Ureter, Via Natural or Artificial Opening Endoscopic (ICD-10-PCS; principal; 2017-05-11)
DX: N20.1 Calculus of ureter (principal); N39.0 Urinary tract infection, site not specified; I10 Essential (primary) hypertension; N17.9 Acute kidney failure, unspecified; Z98.890 Other specified postprocedural states
CPT/HCPCS: C1769; J1956; J2001; J7120

== ENCOUNTER → 2017-05-14 | Day surgery (SDC) | payer SELFPAY ==
[~2017-05-14] VITALS: Ht 167.6 cm; Wt 79.9 kg
== END ==
LOC: GEND 06:54 → GOPP 07:00
PROC: 0DBN8ZX Excision of Sigmoid Colon, Via Natural or Artificial Opening Endoscopic, Diagnostic (ICD-10-PCS; principal; 2017-05-14)
PROC: 0DBL8ZX Excision of Transverse Colon, Via Natural or Artificial Opening Endoscopic, Diagnostic (ICD-10-PCS; 2017-05-14)
PROC: 0DBP8ZX Excision of Rectum, Via Natural or Artificial Opening Endoscopic, Diagnostic (ICD-10-PCS; 2017-05-14)
DX: Z12.11 Encounter for screening for malignant neoplasm of colon (principal); D12.5 Benign neoplasm of sigmoid colon; D12.3 Benign neoplasm of transverse colon; D12.8 Benign neoplasm of rectum; I10 Essential (primary) hypertension; Z90.710 Acquired absence of both cervix and uterus; Z79.899 Other long term (current) drug therapy
CPT/HCPCS: J2001; J7030

== ENCOUNTER 2017-05-21 14:00 | Inpatient (IN) | payer SELFPAY ==
[~2017-05-21] VITALS: Ht 170.2 cm; Wt 82.5 kg
--- NOTE | ~2017-05-21 | OR ---
PATIENT'S NAME[facility] AGE[facility] 66 Y [address] ROOM: [address] [address] LOCATION: [facility] [place] ADMIT DATE: 05/25/2017 OR/Procedure Report DISCHARGE DATE: FAMILY PHYSICIAN: PHYSICIAN, NO ATTENDING PHYSICIAN: Jayy Velez SURGEON: Jayy Velez MD SIGN SHOP SUPERVISOR: DATE OF PROCEDURE: 05/25/2017 PREOPERATIVE DIAGNOSIS: Colovesical fistula. POSTOPERATIVE DIAGNOSIS: Colovesical fistula. PROCEDURES PERFORMED: Exploratory laparotomy with separation of colovesical fistula, repair of bladder, and a partial sigmoid colectomy with ajfd-wj-xatz anastomosis. ANESTHESIA: General. ESTIMATED BLOOD LOSS: Less than 100. SPECIMENS: Colon. INDICATIONS: The patient is a 66-year-old young lady who has been having problems with intermittent urinary tract infections. Recently hospitalized at [facility], evaluated by the Hospitalist Service and Dr. Ruff, Urology. She was found to have a normal cystoscopy, but a CT demonstrated a colovesical fistula. She has been having recurrent UTIs and passing some urine per rectum. A colonoscopy performed preoperatively showed adenomatous polyps. No evidence of malignancy. She has a history of uterine cancer status post hysterectomy, BSO, and radiation tattoos are noted of her abdominal wall. DESCRIPTION OF PROCEDURE: After informed consent, the patient was taken to the operating room. After general endotracheal anesthesia, the patient was positioned in lithotomy. The patient's abdomen was prepped and draped into a sterile field. A Rubio catheter had been inserted. A time-out was performed. We confirmed the patient, planned procedure, and administration of preoperative antibiotics. A midline incision from her hysterectomy was re- utilized from the umbilicus down to the pubis. Upon excising it through the fascia in the midline, we encountered adhesions of omentum to the anterior abdominal wall which we sharply took down. We were able to free up the omentum all the way into the pelvis, pull back the small bowel. We then placed her head down, placed a body wall retractor, and packed the small bowel out of the operative field. We mobilized up the distal sigmoid colon, upper rectum to [facility] 66 Y [address] ROOM: [address] [address] LOCATION: [facility] [place] ADMIT DATE: 05/25/2017 OR/Procedure Report DISCHARGE DATE: FAMILY PHYSICIAN: PHYSICIAN, NO ATTENDING PHYSICIAN: Jayy Velez gain mobilization and it went down to the bladder. We then went on the right side where the colon was deviated over and scarred down and got a window. We then continued sharp dissection all the way until we identified the connection point of the sigmoid colon loop with the bladder wall. We excised through the fistula. We had opening in the bladder and a small one in the colon. There was no evidence of diverticular disease. It did not appear to be radiated bowel injury. Dr. Norris then proceeded with the primary closure of the bladder fistula. We then mobilized up the distal sigmoid, upper rectum. The colon was scarred down to the right pelvic wall. However, within this redundant loop, we had enough bowel and we performed a limited excision of the sigmoid colon that was involved with the fistulous tract. The bowel was otherwise normal. We went ahead and excised it using two loads of Endo RU 75. We placed the two ends of the remaining sigmoid cjnn-qv-yhes, did colotomies, and fired a RU between them to create a edjb-hi-qfmx anastomosis. We reinforced the staple line in the corner with 3-0 silk. We stapled off the colotomy site with a TA 60. We closed the mesenteric defect between the two ends with 3-0 silk. We then copiously irrigated the pelvis. There was no other pathology noted. After instrument, sponge, and needle counts were correct, we closed the fascia and peritoneum as one with running 0 Nurolon. We irrigated subcutaneous tissue and closed the skin with remington, and other instrument, sponge, and needle counts were correct. The patient tolerated the procedure well and transferred to the recovery room in stable condition. JAYY VELEZ MD WTS/modl /[id number] d: 05/25/17 1745 t: 06/03/17 1610, OPERATIVE SUMMARY
--- NOTE | ~2017-05-21 | DS ---
PATIENT'S NAME: ARNOL WATTS [facility] AGE: 66 Y [address] ROOM: [id number] [place], [place] [address] LOCATION: [facility] [place] ADMIT DATE: 05/25/2017 Discharge Summary DISCHARGE DATE: 05/30/2017 FAMILY PHYSICIAN: PHYSICIAN, NO ATTENDING PHYSICIAN: Jayy Sotomayor DIAGNOSES: 1. Colovesical fistula. 2. History of uterine cancer status post radiation therapy. SUMMARY: Mrs. Arnol Watts is a 66-year-old Syriac-speaking female, who was seen at [facility] by Dr. Sotomayor in consultation on May 04, 2017, after the patient had been hospitalized at [facility] for severe flank pain. The patient was found to have an obstructing left ureteral stone. The patient had a cystoscopy with Dr. Ruff and a stent was placed. There was no evidence of malignancy. The patient had complained of liquid stool for about 5 years. She states that she does not urinate very often and the CT cystogram with contrast revealed a colovesical fistula. It appeared to be in the posterior lower bladder wall and it preferentially drained into the rectum accounting for the liquid stool. While in the hospital, she had a Rubio catheter in place and the liquid diarrhea stopped. She had a colonoscopy 4 years ago in [place] that did not reveal any abnormalities. Dr. Sotomayor recommended a followup colonoscopy and discussed options for an exploratory laparotomy with colon resection. Please see his history and physical for specifics. The patient subsequently was admitted to [facility] on the morning of May 25 to undergo an exploratory laparotomy with colovesical fistula repair with partial colectomy. The patient received Mefoxin 2 g IV preoperatively. The patient was taken to the operating room, where she was found to have a colovesical fistula. A partial sigmoid colectomy with xggx-hl-wjrb anastomosis and repair of the bladder was completed. Please see Dr. Sotomayor's procedure note for specifics. Postoperatively, the patient was kept n.p.o. Activity was allowed as tolerated. Pulmonary toiletry was encouraged. Lovenox was ordered for DVT prophylaxis. Mefoxin 1 g IV q.6 hours x4 doses postoperatively was ordered. Morphine BONE PROCESS OPERATOR was started for pain control. On postop day #1, the patient had mild pain; was afebrile. Vital signs were stable. Hemoglobin was 12.7. Her BONE PROCESS OPERATOR was switched to demand only. Postop day #2, the patient continued to do well and was started on sips of clear liquids. She was advanced to a clear liquid diet on postop day #3 and was started on oral pain medication. Her diet was advanced to full liquids on postop day #4. By postop day #5, the patient was ambulating well and was tolerating diet. Pain was controlled. Arrangements were made for the patient to discharge home. DISCHARGE INSTRUCTIONS: Include regular diet. No lifting greater than 20 pounds for 6 weeks. She will follow up with Dr. Sotomayor on June 04 and PATIENT'S NAME: ARNOL WATTS [facility] AGE: 66 Y [address] ROOM: [address] [address] LOCATION: [facility] [place] ADMIT DATE: 05/25/2017 Discharge Summary DISCHARGE DATE: 05/30/2017 FAMILY PHYSICIAN: PHYSICIAN, NO ATTENDING PHYSICIAN: Jayy Sotomayor Dr. the same day. She is to remove the Rubio catheter in the bobbin trucker of June 04. Rubio catheter teaching was completed with the daughter. DISCHARGE MEDICATIONS: Include, 1. Cozaar 25 mg p.o. daily. 2. Tylenol Extra Strength 500 mg p.o. q.4 hours p.r.n. pain. 3. Prescription was written for Colace 100 mg p.o. b.i.d., dispensing 30 and [place] 5/325 one tablet p.o. q.4 hours p.r.n. acute pain, dispensing 20. Final pathology report showed diverticula. For specifics on day-to-day care, please refer to the hospital chart. LEWIS TAMAYO PA-C FOR MD ANGELIQUE RODRIGUEZ/min /[id number] d: 06/03/17 0259 t: 06/03/17 1729, DISCHARGE SUMMARY
--- NOTE | ~2017-05-21 | OR ---
PATIENT'S NAME: ARNOL WATTS [facility] AGE: 66 Y [address] ROOM: [place] [address] LOCATION: [facility] [place] ADMIT DATE: 05/25/2017 OR/Procedure Report DISCHARGE DATE: FAMILY PHYSICIAN: PHYSICIAN, CODY ATTENDING PHYSICIAN: Jayy Sotomayor SURGEON: Velia Norris MD CLINICAL TRIAL ASSISTANT: DATE OF PROCEDURE: 05/25/2017 PREOPERATIVE DIAGNOSIS: Colonic vesical fistula. POSTOPERATIVE DIAGNOSIS: Colonic vesical fistula. PROCEDURE PERFORMED: Repair of bladder fistula. DESCRIPTION OF PROCEDURE: After adequate anesthesia, the abdominal cavity was entered by Dr. Sotomayor. Examination of the pelvic area showed an area of the colon that was adherent to the urinary bladder. With careful dissection, this was dissected off the bladder. Then, there was a hole in the dome of the bladder. This area was closed with 2-0 Vicryl in a running suture. A second layer was also used to close this defect again using 2-0 Vicryl. The colon resection was then done by Dr. Sotomayor. VELIA NORRIS MD EKL/modl /[id number] d: 05/25/17 1303 t: 05/26/17 0444, OPERATIVE SUMMARY
[~2017-05-21 14:00] MED LIST changes: -COLACE100 MG PO; -NORCO 5-325 TA1 EACH PO
[2017-05-26 05:47] LABS: BASOPHIL % 0.1 %; HEMATOCRIT 38.7 % (33.0-46.0); HEMOGLOBIN 12.3 g/dL (10.0-15.0); IMMATURE GRANULOCYTE # 0.1 K/uL (0.0-0.3); IMMATURE GRANULOCYTE % 0.8 %; LYMPHOCYTE # 1.1 K/uL (0.8-4.0); LYMPHOCYTE % 7.7 %; MCH 29.6 pg (27.0-34.0); MCHC 31.8 gm/dL (32.0-36.5); MONOCYTE # 0.5 K/uL (0.0-1.0); MONOCYTE % 3.4 %; MPV 10.1 fl (9.4-12.4); NEUTROPHIL # (ANC) 12.9 K/uL (1.8-7.8); NRBC % 0 /100WBC (0-0.00); RBC 4.16 M/uL (3.50-5.50); RDW-CV 15.8 % (11.9-14.6); WBC 14.6 K/uL (4.0-11.0)
[2017-05-26 05:49] LABS: PLATELET COUNT 299 K/uL (150-450)
[2017-05-26 06:09] LABS: ANION GAP 14.9 (10.0-19.0); CALCIUM 9.6 mg/dL (8.5-10.5); CREATININE 1.4 mg/dL (0.5-1.1); POTASSIUM 4.9 mMol/L (3.7-5.1)
[2017-05-27 06:05] LABS: BASOPHIL % 0.3 %; EOSINOPHIL % 0.3 %; HEMATOCRIT 36.6 % (33.0-46.0); HEMOGLOBIN 11.5 g/dL (10.0-15.0); IMMATURE GRANULOCYTE # 0.1 K/uL (0.0-0.3); IMMATURE GRANULOCYTE % 0.5 %; LYMPHOCYTE # 1.1 K/uL (0.8-4.0); LYMPHOCYTE % 11.8 %; MCH 29.1 pg (27.0-34.0); MCHC 31.4 gm/dL (32.0-36.5); MCV 92.7 fl (83.0-98.0); MONOCYTE # 0.4 K/uL (0.0-1.0); MONOCYTE % 4.4 %; MPV 10.1 fl (9.4-12.4); NEUTROPHIL # (ANC) 7.9 K/uL (1.8-7.8); NEUTROPHIL % 82.7 %; NRBC % 0 /100WBC (0-0.00); PLATELET COUNT 245 K/uL (150-450); RBC 3.95 M/uL (3.50-5.50); RDW-CV 15.8 % (11.9-14.6); WBC 9.6 K/uL (4.0-11.0)
[2017-05-27 06:25] LABS: ALBUMIN 2.7 gm/dL (3.5-5.0); ANION GAP 13.6 (10.0-19.0); CALCIUM 9.2 mg/dL (8.5-10.5); CREATININE 0.9 mg/dL (0.5-1.1); PHOSPHORUS 2.8 mg/dL (2.5-4.9); POTASSIUM 4.6 mMol/L (3.7-5.1)
[2017-05-30] MEDS ORDERED: COLACE100 MG PO (12:26)
[2017-05-30] MEDS ORDERED: NORCO 5-325 TA1 EACH PO (12:26)
== END 2017-05-30 16:20 | disposition disaster alternative care site (69) | DRG 655 ==
LOC: GMSU 05-25 06:02
PROVIDERS: ADMIT Surgery
PROC: 0TQB0ZZ Repair Bladder, Open Approach (ICD-10-PCS; principal; 2017-05-25)
PROC: 0DBN0ZZ Excision of Sigmoid Colon, Open Approach (ICD-10-PCS; principal; 2017-05-25)
PROC: 0DNS0ZZ (ICD-10-PCS; principal; 2017-05-25)
DX: N32.1 Vesicointestinal fistula (principal); I10 Essential (primary) hypertension; R32 Unspecified urinary incontinence; Z92.3 Personal history of irradiation; K66.0 Peritoneal adhesions (postprocedural) (postinfection); D12.6 Benign neoplasm of colon, unspecified; Z87.440 Personal history of urinary (tract) infections; Z85.42 Personal history of malignant neoplasm of other parts of uterus
CPT/HCPCS: C9113; J0690; J0694; J1100; J1170; J1650; J2001; J2270; J2405; J2550; J3480; J7040; J7120